=== PATIENT | male | born 1995 | race Two or more races ===

== ENCOUNTER 2016-12-22 11:35 | Emergency (ER) | payer OTHER ==
[~2016-12-22] VITALS: Ht 177.8 cm; Wt 79.4 kg
[2016-12-22 11:50] VITALS: BP 115/66
== END 2016-12-22 14:26 | disposition home or self-care (01) ==
LOC: ER 11:35
DX: S51.811A Laceration without foreign body of right forearm, initial encounter (principal); W25.XXXA Contact with sharp glass, initial encounter; Y93.89 Activity, other specified; Y99.8 Other external cause status; Y92.89 Other specified places as the place of occurrence of the external cause
CPT/HCPCS: 12004